=== PATIENT | female | born 1995 | race Caucasian/White ===

== ENCOUNTER 2017-08-27 16:03 | Emergency (ER) | END 2017-08-27 22:30 | disposition home or self-care (01) ==

== ENCOUNTER 2019-01-26 19:17 | Emergency (ER) | payer MEDICAID ==
[~2019-01-26] VITALS: Ht 167.6 cm; Wt 64.9 kg
[~2019-01-26 19:17] MED LIST: ACET500C5 PO; NAPR-985 PO
[2019-01-26 19:38] VITALS: Ht 167.6 cm; Wt 64.9 kg
[2019-01-26] MEDS ORDERED: KETOROLAC 15 MG INJ IV STA (20:08)
[2019-01-26] MEDS ORDERED: SOD CHLORIDE 0.9% 1,000 ML IV STA (20:08)
[2019-01-26] MEDS ORDERED: ONDANSETRON 4 MG INJ IV STA (20:08)
--- NOTE | 2019-01-26 20:08 | ERD ---
ER Documentation Chief Complaint Chief Complaint CHEST PAIN X TODAY. HPI 23-year-old woman here for 1 day of sharp nonexertional nonradiating chest pain with complaints of nausea as well. She states she had a few episodes of vomitin g and diarrhea today as well. She is on no blood per rectum or melena, no hematemesis. Patient denies abdominal pain or cramping. Patient denies recent weight loss. Chest pain has been sharp nonradiating and nonexertional and constant all day long. She denies any precipitating or alleviating factors, no recent exercise, no cough or URI symptoms, no calf or leg swelling, no complaints of dizziness, shortness of breath, or fevers. ROS All systems reviewed and are negative except as per history of present illness. Medications Home Meds Active Scripts Ibuprofen* (Motrin*) 600 Mg Tab, 600 MG PO Q8 PRN for PAIN AND/OR INFLAMMATION, #30 TAB Prov:PARMINDER HYATT MD 01/26/19 Acetaminophen* (Tylophen*) 500 Mg Capsule, 1 CAP PO Q6H PRN for PAIN AND OR ELEVATED TEMP, #30 CAP Prov:ALLAN OLIVAS PA-C 08/27/17 Naproxen* (Naprosyn*) 500 Mg Tablet, 500 MG PO BID PRN for PAIN AND/OR INFLAMMATION, #30 TAB Prov:ALLAN OLIVAS PA-C 08/27/17 Allergies Allergies: Coded Allergies: No Known Allergy (Unverified , 08/12/12) PMhx/Soc History of Surgery: No Anesthesia Reaction: No Hx Neurological Disorder: No Hx Respiratory Disorders: Yes (ASTHMA) Hx Cardiac Disorders: No Hx Psychiatric Problems: No Hx Miscellaneous Medical Probl: No Hx Alcohol Use: No Hx Substance Use: No Hx Tobacco Use: No Smoking Status: Never smoker FmHx Family History: No diabetes Physical Exam Vitals Vital Signs Date Temp Pulse Resp B/P (MAP) Pulse Ox O2 O2 Flow FiO2 Time Delivery Rate 01/26/19 70 18 118/87 100 Room Air 20:00 (97) 01/26/19 98.5 80 18 144/85 99 19:38 (104) Physical Exam GENERAL: Well-developed, well-nourished, well-hydrated, in no apparent distress, looks nontoxic in appearance CARDIAC: Regular rate and rhythm, no murmurs rubs or gallops LUNGS: Clear bilaterally no wheezing crackles or stridor ABDOMEN: Soft nontender, no guarding, no rigidity, no rebound, no psoas sign no obturator sign. Normoactive bowel sounds SKIN: Warm and dry to touch, no abrasions, contusions, or hematomas, no lacerations, no ecchymosis, no target lesions, and without ulcers EXTREMITIES: No clubbing cyanosis or edema, calves are bilaterally symmetrical, no Homans sign, no popliteal cord sign. Distal pulses equal and bilateral PSYCH: Normal affect without agitation or irritability Result Diagram: 01/26/19202401/26/192026 Results 24 hrs Laboratory Tests Test 01/26/19 20:25 01/26/19 20:27 01/26/19 20:43 White Blood Count 5.5 10^3/ul Red Blood Count 4.15 10^6/ul Hemoglobin 11.1 g/dl Hematocrit 35.0 % Mean Corpuscular Volume 84.3 fl Mean Corpuscular Hemoglobin 26.7 pg Mean Corpuscular 31.7 g/dl Hemoglobin Concent Red Cell Distribution Width 13.8 % Platelet Count 309 10^3/UL Mean Platelet Volume 11.5 fl Immature Granulocytes % 0.200 % Neutrophils % 47.5 % Lymphocytes % 33.3 % Monocytes % 15.0 % Eosinophils % 3.3 % Basophils % 0.7 % Nucleated Red Blood Cells % 0.0 /100WBC Immature Granulocytes # 0.010 10^3/ul Neutrophils # 2.6 10^3/ul Lymphocytes # 1.8 10^3/ul Monocytes # 0.8 10^3/ul Eosinophils # 0.2 10^3/ul Basophils # 0.0 10^3/ul Nucleated Red Blood Cells # 0.0 10^3/ul Urine Color YELLOW Urine Clarity SLIGHTLY CLOUDY Urine pH 5.0 Urine Specific [place] 1.023 Urine Ketones NEGATIVE mg/dL Urine Nitrite NEGATIVE mg/dL Urine Bilirubin NEGATIVE mg/dL Urine Urobilinogen NEGATIVE mg/dL Urine Leukocyte Esterase NEGATIVE Khadijah/ul Urine Microscopic RBC 1 /HPF Urine Microscopic WBC 4 /HPF Urine Squamous Epithelial Cells FEW /HPF Urine Hemoglobin NEGATIVE mg/dL Urine Glucose NEGATIVE mg/dL Urine Total Protein NEGATIVE mg/dl Sodium Level 143 mmol/L Potassium Level 4.0 mmol/L Chloride Level 108 mmol/L Carbon Dioxide Level 25 mmol/L Anion Gap 10 Blood Urea Nitrogen 9 mg/dl Creatinine 0.72 mg/dl Est Glomerular Filtrat > 60 mL/min Rate mL/min Glucose Level 133 mg/dl Calcium Level 9.5 mg/dl Total Bilirubin 0.3 mg/dl Direct Bilirubin 0.00 mg/dl Indirect Bilirubin 0.3 mg/dl Aspartate Amino Transf (AST/SGOT) 21 IU/L Alanine 14 IU/L Aminotransferase (ALT/SGPT) Alkaline Phosphatase 66 IU/L Troponin I < 0.012 ng/ml Total Protein 8.4 g/dl Albumin 4.5 g/dl Globulin 3.90 g/dl Albumin/Globulin Ratio 1.15 Lipase 72 U/L Ethyl Alcohol Level < 10.0 mg/dl POC Beta HCG, Qualitative NEGATIVE Current Medications Medications Dose Sig/Catie Start Time Status Last (Trade) Ordered Route PRN Stop Time Admin Dose Reason Admin Sodium 1,000 ml @ Q1H STAT 01/26/19 DC 01/26/19 Chloride 1,000 mls/hr IV 20:08 01/26/19 20:25 21:07 Ondansetron 4 mg ONCE STAT 01/26/19 DC 01/26/19 HCl (Zofran IV 20:08 01/26/19 20:25 Inj) 20:10 Ketorolac 15 mg ONCE STAT 01/26/19 DC 01/26/19 Tromethamine IV 20:08 01/26/19 20:25 (Toradol) 20:10 Procedures/MDM IV line was established patient was placed on site monitor rhythm strip revealed a sinus rhythm at about 80 bpm with upright P and T waves. Patient was afebrile EKG performed, read by me: 75 bpm, normal sinus rhythm, normal axis, no acute ST segment changes, narrow QRS complex, with good R-wave progression in precordial leads. Chest X-ray 1V Interpreted by me: Soft Tissue: No acute abnormalities Bones: No acute abnormalities Mediastinum/Cardiac Silhouette/Lungs: No acute abnormalities I administered 1 L normal saline IV, Toradol 15 mg IV, Zofran 4 mg IV CBC and electrolytes are normal, liver function tests were normal, troponin was negative, urine analysis negative for infection, ethanol level negative. Differential diagnoses considered, included but not limited to acute coronary syndrome, pulmonary embolism, aortic dissection, abdominal aortic aneurysm, sepsis, stroke, meningitis, encephalitis, pneumonia, appendicitis, cholecystitis, bowel obstruction, pyelonephritis, nephrolithiasis, cystitis, as well as metabolic, hematologic, and electrolyte abnormalities. As well as abscess, cellulitis, fractures, and dislocations. Patient feels much better at this time, and vital signs are normal, symptoms have improved. I did give strict instructions to return to the ED if symptoms continue or worsen, patient will otherwise follow-up with primary care physician. Patient understood instructions and agreed to plan. Disclaimer: Inadvertent spelling and grammatical errors are likely due to E HR/dictation software use and do not reflect on the overall quality of patient care. Also, please note that the electronic time recorded on this note does not necessarily reflect the actual time of the patient encounter. Departure Diagnosis: Primary Impression: Chest pain Chest pain type: unspecified Qualified Codes: R07.9 - Chest pain, unspecified Additional Impression: Vomiting and diarrhea Condition: PARMINDER Morin MD Jan 26, 2019 20:08
[2019-01-26] MEDS ORDERED: IBUP-1542 PO (21:15)
[2019-01-26 21:44] VITALS: BP 109/69; PULSE 60; RESP 17
== END 2019-01-26 21:47 | disposition home or self-care (01) ==
LOC: E/R 19:17
DX: R07.9 Chest pain, unspecified (principal); R11.2 Nausea with vomiting, unspecified; R19.7 Diarrhea, unspecified; J45.901 Unspecified asthma with (acute) exacerbation
CPT/HCPCS: 71045; 80053; 80307; 81001; 81003; 81025; 83690; 84484; 85025; J1885; J2405; J7030; 36415; 93005; 96361; 96374; 96375